=== PATIENT | male | born 1990 | race African-American/Black ===

== ENCOUNTER 2018-08-13 13:19 | Emergency (ER) | payer MEDICAID ==
[~2018-08-13] VITALS: Ht 182.9 cm; Wt 71.2 kg
[2018-08-13 13:43] VITALS: BP 155/79
== END 2018-08-13 15:57 | disposition left against medical advice (07) ==
LOC: ER 13:19
DX: R06.02 Shortness of breath (principal); Z53.21 Procedure and treatment not carried out due to patient leaving prior to being seen by health care provider